=== PATIENT | female | born 1940 | race Caucasian/White ===

== ENCOUNTER 2020-09-22 15:10 | Inpatient (IN) | payer MEDICARE, OTHER ==
[~2020-09-22] VITALS: Ht 162.6 cm; Wt 63.7 kg
[~2020-09-22 15:10] MED LIST: ACETAMINOPHEN325 MG PO; MAG-OXIDE 400M400 MG PO; MUCINEX 600MG600 MG PO; NORCO 5-325 TA1 EACH PO
[2020-09-22 16:44] LABS: BASOPHIL 0.6 % (0-2); HCT 42.9 % (37.0-47.0); HGB 14.2 g/dl (12.5-16.0); LYMPHOCYTE 28.1 % (15-48); MCH 31.6 pg (25.0-31.0); MCHC 33.1 g/dL (32.0-36.0); MCV 95.5 fL (78.0-100.0); MPV 9.8 fL (6.0-9.5); NRBC 0; PLT 257 K/uL (150-400); RBC 4.49 M/uL (4.20-5.40); RDW 12.9 % (11.5-14.0); WBC 8.8 K/uL (4.0-10.5)
[2020-09-22 16:51] LABS: ALBUMIN 3.5 g/dL (3.4-5.0); BILIRUBIN - TOTAL 0.5 mg/dL (0.2-1.0); BUN/CREAT RATIO (CALC) 19.6 RATIO; CREATININE 0.97 mg/dL (0.51-0.95); TOTAL PROTEIN 6.5 g/dL (6.4-8.2)
[2020-09-23 05:48] LABS: BASOPHIL 0.2 % (0-2); EOSINOPHIL 0.2 % (0-7); HCT 38.3 % (37.0-47.0); HGB 12.6 g/dl (12.5-16.0); LYMPHOCYTE 8.4 % (15-48); MCHC 32.9 g/dL (32.0-36.0); MCV 94.3 fL (78.0-100.0); MONOCYTE 8.1 % (0-12); MPV 9.9 fL (6.0-9.5); NEUTROPHIL 82.7 % (41-80); NRBC 0; PLT 218 K/uL (150-400); RBC 4.06 M/uL (4.20-5.40); RDW 12.7 % (11.5-14.0); WBC 11.3 K/uL (4.0-10.5)
[2020-09-23 06:05] LABS: BILIRUBIN - TOTAL 0.9 mg/dL (0.2-1.0); CREATININE 0.75 mg/dL (0.51-0.95); POTASSIUM 3.4 mmol/L (3.5-5.1)
[2020-09-23 08:28] LABS: BUN/CREAT RATIO (CALC) 23.1 RATIO; CREATININE 0.78 mg/dL (0.51-0.95); GLOBULIN (CALCULATION) 2.9 g/dL; POTASSIUM 3.4 mmol/L (3.5-5.1); TOTAL PROTEIN 5.9 g/dL (6.4-8.2)
[2020-09-23] MEDS ORDERED: PLAVIX75 MG PO (09:09)
[2020-09-23] MEDS ORDERED: LIPITOR20 MG PO (09:11)
[2020-09-23] MEDS ORDERED: PROTONIX 40MG T40 MG PO (09:11)
[2020-09-23] MEDS ORDERED: TOPROL XL 25MG25 MG PO (09:12)
--- NOTE | 2020-09-23 13:06 | NUR ---
PT CLEARED BY CARDIOLOGY AND DR FUNES WILL NEXT BE CONSULTED FOR ACUTE CHOLECYSTITIS
[2020-09-23 14:18] LABS: AMYLASE 68 U/L (25-115); LIPASE 180 U/L (73-393)
[2020-09-24 05:49] LABS: BASOPHIL 0.6 % (0-2); EOSINOPHIL 4.1 % (0-7); HCT 38.9 % (37.0-47.0); HGB 12.8 g/dl (12.5-16.0); MCH 31.7 pg (25.0-31.0); MCHC 32.9 g/dL (32.0-36.0); MCV 96.3 fL (78.0-100.0); MPV 10.2 fL (6.0-9.5); NRBC 0; PLT 191 K/uL (150-400); RBC 4.04 M/uL (4.20-5.40); RDW 13.1 % (11.5-14.0); WBC 6.9 K/uL (4.0-10.5)
[2020-09-24 06:07] LABS: INR 1.17 (0.9-1.2); PROTHROMBIN TIME 14.1 SECONDS (11.4-13.6); PTT 28.6 SECONDS (22.2-34.7)
[2020-09-24 06:16] LABS: ALBUMIN 2.8 g/dL (3.4-5.0); BILIRUBIN - TOTAL 0.9 mg/dL (0.2-1.0); BUN/CREAT RATIO (CALC) 15.5 RATIO; CREATININE 0.84 mg/dL (0.51-0.95); MAGNESIUM 1.8 mg/dL (1.8-2.4); POTASSIUM 3.7 mmol/L (3.5-5.1); TOTAL PROTEIN 5.8 g/dL (6.4-8.2)
--- NOTE | 2020-09-24 13:48 | NUR ---
09/24/2020 Ms. Hayes lives alone. She was independent in the home and community prior to admission. Please advise of any discharge needs.
[2020-09-26 04:28] LABS: BASOPHIL 0.4 % (0-2); EOSINOPHIL 0.2 % (0-7); HGB 12.4 g/dl (12.5-16.0); LYMPHOCYTE 14.9 % (15-48); MCH 31.6 pg (25.0-31.0); MCHC 31.8 g/dL (32.0-36.0); MCV 99.2 fL (78.0-100.0); MPV 10.2 fL (6.0-9.5); NEUTROPHIL 74.1 % (41-80); NRBC 0; PLT 230 K/uL (150-400); RBC 3.93 M/uL (4.20-5.40); RDW 12.9 % (11.5-14.0); WBC 10.4 K/uL (4.0-10.5)
[2020-09-26 05:39] LABS: BILIRUBIN - TOTAL 0.6 mg/dL (0.2-1.0); BUN/CREAT RATIO (CALC) 15.8 RATIO; CREATININE 0.76 mg/dL (0.51-0.95); GLOBULIN (CALCULATION) 3.4 g/dL; MAGNESIUM 1.8 mg/dL (1.8-2.4); POTASSIUM 3.4 mmol/L (3.5-5.1); TOTAL PROTEIN 6.4 g/dL (6.4-8.2)
[2020-09-26] MEDS ORDERED: NORCO 5-325 TA1 EAC1 PO (09:53)
[2020-09-26] MEDS ORDERED: AUGMENTIN 875-1 EACH PO (10:15)
[2020-09-26] MEDS ORDERED: ONDANSETRON ODT4 MG PO (10:33)
--- NOTE | 2020-09-26 13:05 | NUR ---
1300 IV DC'D AT THIS TIME. DISCHARGE INSTRUCTIONS DISCUSSED WITH PT, PT VERBALIZED UNDERSTANDING. PT TRANSPORTED TO MAIN DOOR VIA WHEELCHAIR WHERE HER RIDE WAS WAITING, HER SISTER. PT TOLERATED WELL
[2020-09-26] MEDS ORDERED: LEVAQUIN750 MG PO (14:22)
[2021-03-04] MEDS ORDERED: VITAMIN D3 PO (16:34)
[2021-03-04] MEDS ORDERED: B COMPLEX1 EACH PO (16:34)
[2021-03-04] MEDS ORDERED: CO Q-10200 MG PO (16:35)
[2021-03-04] MEDS ORDERED: ASPIRIN EC81 MG PO (16:35)
[2021-03-04] MEDS ORDERED: PLAVIX75 MG PO (17:11)
== END 2020-09-26 12:56 | disposition home or self-care (01) | DRG 419 ==
LOC: FER 15:10 → FTCU 20:23
PROVIDERS: Emergency Medicine; Nurse Practitioner; Surgery; ADMIT Internal Medicine
PROC: B24BZZZ Ultrasonography of Heart with Aorta (ICD-10-PCS; 2020-09-23)
PROC: 0FT44ZZ Resection of Gallbladder, Percutaneous Endoscopic Approach (ICD-10-PCS; principal; 2020-09-25 10:00)
DX: K80.00 Calculus of gallbladder with acute cholecystitis without obstruction (principal); K21.9 Gastro-esophageal reflux disease without esophagitis; Z96.653 Presence of artificial knee joint, bilateral; I10 Essential (primary) hypertension; E78.5 Hyperlipidemia, unspecified; K66.0 Peritoneal adhesions (postprocedural) (postinfection); I25.10 Atherosclerotic heart disease of native coronary artery without angina pectoris; Z20.828 Contact with and (suspected) exposure to other viral communicable diseases; M19.90 Unspecified osteoarthritis, unspecified site; G89.18 Other acute postprocedural pain; F17.210 Nicotine dependence, cigarettes, uncomplicated; R94.5 Abnormal results of liver function studies; Z95.5 Presence of coronary angioplasty implant and graft; Z85.828 Personal history of other malignant neoplasm of skin; Z98.890 Other specified postprocedural states; Z79.02 Long term (current) use of antithrombotics/antiplatelets; Z79.899 Other long term (current) drug therapy; Z79.82 Long term (current) use of aspirin
CPT/HCPCS: 36415; 71045; 74183; 76705; 78452; 80053; 80061; 82150; 83605; 83690; 83735; 84484; 85025; 85610; 85730; 93005; 93017; 94667; A9500; A9579; G0378; J0153; J1170; J2250; J2405; J2543; J2704; J2710; J3010; J7120; U0002

== ENCOUNTER → 2021-03-11 | Day surgery (SDC) | payer MEDICARE, OTHER ==
[~2021-03-11] VITALS: Ht 162.6 cm; Wt 53.7 kg
[~2021-03-11] MED LIST changes: +ASPIRIN EC81 MG PO; +AUGMENTIN 875-1 EACH PO; +B COMPLEX1 EACH PO; +CO Q-10200 MG PO; +LEVAQUIN750 MG PO; +LIPITOR20 MG PO; +NORCO 5-325 TA1 EAC1 PO; +ONDANSETRON ODT4 MG PO; +PLAVIX75 MG PO; +PROTONIX 40MG T40 MG PO; +TOPROL XL 25MG25 MG PO; +VITAMIN D3 PO
[2021-03-11 07:43] LABS: HCT 40.5 % (37.0-47.0); HGB 14.3 g/dl (12.5-16.0); MCH 32.9 pg (25.0-31.0); MCHC 35.3 g/dL (32.0-36.0); MCV 93.1 fL (78.0-100.0); MPV 9.3 fL (6.0-9.5); RBC 4.35 M/uL (4.20-5.40); RDW 13.1 % (11.5-14.0); WBC 8.3 K/uL (4.0-10.5)
[2021-03-11 08:15] LABS: CREATININE 0.73 mg/dL (0.51-0.95); POTASSIUM 3.7 mmol/L (3.5-5.1)
[2021-03-11 08:16] LABS: ALBUMIN 3.6 g/dL (3.4-5.0); BILIRUBIN - TOTAL 0.6 mg/dL (0.2-1.0); GLOBULIN (CALCULATION) 3.3 g/dL; TOTAL PROTEIN 6.9 g/dL (6.4-8.2)
== END | disposition home or self-care (01) ==
LOC: FAS 06:55
PROVIDERS: Surgery
DX: Z12.11 Encounter for screening for malignant neoplasm of colon (principal); K20.90 Esophagitis, unspecified without bleeding; K29.70 Gastritis, unspecified, without bleeding; K44.9 Diaphragmatic hernia without obstruction or gangrene; K57.30 Diverticulosis of large intestine without perforation or abscess without bleeding; K58.9 Irritable bowel syndrome, unspecified; M19.90 Unspecified osteoarthritis, unspecified site; I25.10 Atherosclerotic heart disease of native coronary artery without angina pectoris; I10 Essential (primary) hypertension; E78.5 Hyperlipidemia, unspecified; M81.0 Age-related osteoporosis without current pathological fracture; Z86.010 Personal history of colon polyps; Z87.891 Personal history of nicotine dependence; Z80.0 Family history of malignant neoplasm of digestive organs; Z79.02 Long term (current) use of antithrombotics/antiplatelets; Z79.82 Long term (current) use of aspirin; Z79.899 Other long term (current) drug therapy; Z88.0 Allergy status to penicillin; Z91.013 Allergy to seafood; Z95.5 Presence of coronary angioplasty implant and graft
CPT/HCPCS: 43239; G0105; 36415; 80053; 88305; J1610; J2704; J7120

== ENCOUNTER 2021-05-10 14:36 | Inpatient (IN) | payer MEDICARE, OTHER ==
[~2021-05-10] VITALS: Ht 162.6 cm; Wt 55.5 kg
[2021-05-10 15:00] LABS: BILIRUBIN NEGATIVE (NEGATIVE); BLOOD NEGATIVE Ery/uL (NEGATIVE); CLARITY CLEAR (CLEAR); COLOR YELLOW (YELLOW); GLUCOSE (U) NORMAL (NORMAL); LEUKOCYTES 1+ Leu/uL (NEGATIVE); NITRITE NEGATIVE (NEGATIVE); PROTEIN NEGATIVE (NEGATIVE); SPECIFIC GRAVITY >=1.030 (1.001-1.030); UROBILINOGEN 0.2 mg/dL (0.2-1.0); pH 5.5 (5.0-9.0)
[2021-05-10 15:06] LABS: BACTERIA TRACE
[2021-05-10 15:44] LABS: BASOPHIL 0.3 % (0-2); EOSINOPHIL 0.1 % (0-7); HGB 13.4 g/dl (12.5-16.0); LYMPHOCYTE 10.6 % (15-48); MCH 31.9 pg (25.0-31.0); MCHC 33.5 g/dL (32.0-36.0); MCV 95.2 fL (78.0-100.0); MPV 9.6 fL (6.0-9.5); NEUTROPHIL 83.3 % (41-80); NRBC 0; PLT 365 K/uL (150-400); RDW 12.6 % (11.5-14.0); WBC 20.7 K/uL (4.0-10.5)
[2021-05-10 16:03] LABS: BILIRUBIN - TOTAL 0.4 mg/dL (0.2-1.0); CREATININE 0.88 mg/dL (0.51-0.95); GLOBULIN (CALCULATION) 2.9 g/dL; POTASSIUM 4.1 mmol/L (3.5-5.1); TOTAL PROTEIN 5.9 g/dL (6.4-8.2)
[2021-05-10 16:51] LABS: INR 1.17 (0.9-1.2); PROTHROMBIN TIME 14.3 SECONDS (11.8-13.4)
[2021-05-10 16:57] LABS: LACTIC ACID 1.8 mmol/L (0.4-1.9)
[2021-05-10 20:04] LABS: HCT 32.3 % (37.0-47.0); HGB 10.5 g/dL (12.5-16.0)
[2021-05-10] MEDS ORDERED: PROBIOTIC PO (20:18)
[2021-05-10 22:11] LABS: HCT 30.4 % (37.0-47.0); HGB 10.2 g/dL (12.5-16.0)
[2021-05-11 04:37] LABS: BASOPHIL 0.4 % (0-2); EOSINOPHIL 0.2 % (0-7); HCT 28.8 % (37.0-47.0); HGB 9.6 g/dl (12.5-16.0); LYMPHOCYTE 20.1 % (15-48); MCH 31.9 pg (25.0-31.0); MCHC 33.3 g/dL (32.0-36.0); MCV 95.7 fL (78.0-100.0); MONOCYTE 6.5 % (0-12); MPV 9.6 fL (6.0-9.5); NEUTROPHIL 72.3 % (41-80); NRBC 0; PLT 216 K/uL (150-400); RBC 3.01 M/uL (4.20-5.40); RDW 13.2 % (11.5-14.0); WBC 13.8 K/uL (4.0-10.5)
[2021-05-11 04:53] LABS: BUN/CREAT RATIO (CALC) 30.4 RATIO; CREATININE 0.69 mg/dL (0.51-0.95); POTASSIUM 4.4 mmol/L (3.5-5.1)
[2021-05-11 12:52] LABS: HCT 34.3 % (37.0-47.0); HGB 11.6 g/dL (12.5-16.0)
[2021-05-12 06:26] LABS: BASOPHIL 0.5 % (0-2); EOSINOPHIL 1.6 % (0-7); HCT 31.1 % (37.0-47.0); HGB 10.3 g/dl (12.5-16.0); LYMPHOCYTE 25.4 % (15-48); MCH 30.9 pg (25.0-31.0); MCHC 33.1 g/dL (32.0-36.0); MCV 93.4 fL (78.0-100.0); MONOCYTE 7.4 % (0-12); MPV 9.9 fL (6.0-9.5); NEUTROPHIL 64.5 % (41-80); NRBC 0; PLT 197 K/uL (150-400); RBC 3.33 M/uL (4.20-5.40); RDW 14.2 % (11.5-14.0); WBC 10.1 K/uL (4.0-10.5)
[2021-05-12 06:56] LABS: CREATININE 0.8 mg/dL (0.51-0.95); POTASSIUM 3.7 mmol/L (3.5-5.1)
--- NOTE | 2021-05-12 13:23 | NUR ---
PATIENT BACK FROM PACU IN STABLE CONDITION. V/S 119/59, 75 HR, 98%, 18, 96.4 ROOM AIR
--- NOTE | 2021-05-12 15:20 | NUR ---
ATTEMPTED TO CALL PCP ABOUT STOOL STUDIES REQUESTED BY DR FUNES AND UNABLE TO REACH OR GET ANSWER VIA PHONECALL
[2021-05-13 07:12] LABS: EOSINOPHIL 1.6 % (0-7); HCT 31.7 % (37.0-47.0); HGB 10.3 g/dl (12.5-16.0); LYMPHOCYTE 26.7 % (15-48); MCH 30.6 pg (25.0-31.0); MCHC 32.5 g/dL (32.0-36.0); MCV 94.1 fL (78.0-100.0); MONOCYTE 10.1 % (0-12); MPV 9.8 fL (6.0-9.5); NEUTROPHIL 60.3 % (41-80); NRBC 0; PLT 212 K/uL (150-400); RBC 3.37 M/uL (4.20-5.40); RDW 14.3 % (11.5-14.0); WBC 7.3 K/uL (4.0-10.5)
[2021-05-13 07:36] LABS: CREATININE 0.89 mg/dL (0.51-0.95); POTASSIUM 3.5 mmol/L (3.5-5.1)
[2021-05-13] MEDS ORDERED: CIPRO500 MG PO (14:03)
[2021-05-13] MEDS ORDERED: METRONIDAZOLE500 MG PO (14:03)
--- NOTE | 2021-05-13 14:20 | NUR ---
MET WITH PT. SHE STATED THAT SHE IS INDEPENDENT AT HOME. SHE DOES NOT WISH TO HAVE HH AT THIS TIME.
== END 2021-05-13 14:54 | disposition home or self-care (01) | DRG 378 ==
LOC: FER 14:36 → FMS 18:13
PROVIDERS: Emergency Medicine; Surgery; ADMIT Allergy & Immunology Allergy
PROC: 30233N1 Transfusion of Nonautologous Red Blood Cells into Peripheral Vein, Percutaneous Approach (ICD-10-PCS; 2021-05-11)
PROC: 0DJ08ZZ Inspection of Upper Intestinal Tract, Via Natural or Artificial Opening Endoscopic (ICD-10-PCS; 2021-05-12)
PROC: 0DBM8ZX Excision of Descending Colon, Via Natural or Artificial Opening Endoscopic, Diagnostic (ICD-10-PCS; principal; 2021-05-12 11:45)
PROC: 0DBN8ZX Excision of Sigmoid Colon, Via Natural or Artificial Opening Endoscopic, Diagnostic (ICD-10-PCS; 2021-05-12 11:45)
DX: K57.31 Diverticulosis of large intestine without perforation or abscess with bleeding (principal); R65.10 Systemic inflammatory response syndrome (SIRS) of non-infectious origin without acute organ dysfunction; D62 Acute posthemorrhagic anemia; T45.525A Adverse effect of antithrombotic drugs, initial encounter; I10 Essential (primary) hypertension; I25.10 Atherosclerotic heart disease of native coronary artery without angina pectoris; K52.9 Noninfective gastroenteritis and colitis, unspecified; K44.9 Diaphragmatic hernia without obstruction or gangrene; Z20.822 Contact with and (suspected) exposure to COVID-19; Z66 Do not resuscitate; I95.1 Orthostatic hypotension; K64.4 Residual hemorrhoidal skin tags; Z96.653 Presence of artificial knee joint, bilateral; M19.90 Unspecified osteoarthritis, unspecified site; Z95.5 Presence of coronary angioplasty implant and graft; Z79.82 Long term (current) use of aspirin; Z79.02 Long term (current) use of antithrombotics/antiplatelets; Z79.899 Other long term (current) drug therapy; Z88.8 Allergy status to other drugs, medicaments and biological substances
CPT/HCPCS: 36415; 36430; 80048; 80053; 81001; 82270; 83605; 84484; 85014; 85018; 85025; 85610; 85730; 86850; 86900; 86901; 86922; 87040; 88305; 93005; C9113; J0610; J2354; J2405; J2543; J2704; J7030; J7120; P9016; Q9967; U0002

== ENCOUNTER 2021-05-17 10:34 | Emergency (ER) | payer MEDICARE, OTHER ==
[~2021-05-17 10:34] MED LIST changes: +CIPRO500 MG PO; +METRONIDAZOLE500 MG PO; +PROBIOTIC PO
[2021-05-17 11:38] LABS: BASOPHIL 0.9 % (0-2); EOSINOPHIL 1.4 % (0-7); HCT 34.2 % (37.0-47.0); HGB 11.1 g/dl (12.5-16.0); LYMPHOCYTE 16.6 % (15-48); MCH 31.5 pg (25.0-31.0); MCHC 32.5 g/dL (32.0-36.0); MCV 97.2 fL (78.0-100.0); MONOCYTE 7.3 % (0-12); MPV 10.1 fL (6.0-9.5); NEUTROPHIL 73.3 % (41-80); NRBC 0; PLT 286 K/uL (150-400); RBC 3.52 M/uL (4.20-5.40); RDW 15.2 % (11.5-14.0); WBC 6.6 K/uL (4.0-10.5)
[2021-05-17 11:54] LABS: ALBUMIN 3.4 g/dL (3.4-5.0); BILIRUBIN - TOTAL 0.3 mg/dL (0.2-1.0); BUN/CREAT RATIO (CALC) 20.8 RATIO; CREATININE 0.77 mg/dL (0.51-0.95); GLOBULIN (CALCULATION) 3.2 g/dL; POTASSIUM 3.8 mmol/L (3.5-5.1); TOTAL PROTEIN 6.6 g/dL (6.4-8.2)
== END 2021-05-17 14:10 | disposition home or self-care (01) ==
LOC: FER 10:34
PROVIDERS: Internal Medicine
DX: K57.21 Diverticulitis of large intestine with perforation and abscess with bleeding (principal); I25.10 Atherosclerotic heart disease of native coronary artery without angina pectoris; Z90.49 Acquired absence of other specified parts of digestive tract; Z88.0 Allergy status to penicillin; Z79.02 Long term (current) use of antithrombotics/antiplatelets; Z79.82 Long term (current) use of aspirin; Z95.5 Presence of coronary angioplasty implant and graft
CPT/HCPCS: 36415; 80053; 85025; 86850; 86900; 86901; Q9967

== ENCOUNTER 2021-05-29 09:12 | Emergency (ER) | payer MEDICARE, OTHER ==
[2021-05-29 09:41] LABS: BASOPHIL 0.8 % (0-2); EOSINOPHIL 1.1 % (0-7); HCT 37.6 % (37.0-47.0); HGB 12.1 g/dl (12.5-16.0); LYMPHOCYTE 25.9 % (15-48); MCH 31.4 pg (25.0-31.0); MCHC 32.2 g/dL (32.0-36.0); MCV 97.7 fL (78.0-100.0); MONOCYTE 9.3 % (0-12); MPV 9.2 fL (6.0-9.5); NEUTROPHIL 62.7 % (41-80); NRBC 0; PLT 291 K/uL (150-400); RBC 3.85 M/uL (4.20-5.40); RDW 14.8 % (11.5-14.0); WBC 6.1 K/uL (4.0-10.5)
[2021-05-29 09:51] LABS: INR 1.02 (0.9-1.2); PROTHROMBIN TIME 12.8 SECONDS (11.8-13.4); PTT 26.7 SECONDS (24.4-34.7)
[2021-05-29 10:11] LABS: PRO-BNP 290 pg/mL (<450)
[2021-05-29 10:14] LABS: ALBUMIN 3.5 g/dL (3.4-5.0); BILIRUBIN - TOTAL 0.3 mg/dL (0.2-1.0); CREATININE 0.77 mg/dL (0.51-0.95); POTASSIUM 3.6 mmol/L (3.5-5.1); TOTAL PROTEIN 6.5 g/dL (6.4-8.2)
[2021-05-29 10:19] LABS: BILIRUBIN NEGATIVE (NEGATIVE); BLOOD TRACE-LYSED Ery/uL (NEGATIVE); CLARITY CLEAR (CLEAR); COLOR YELLOW (YELLOW); GLUCOSE (U) NORMAL (NORMAL); LEUKOCYTES 2+ Leu/uL (NEGATIVE); NITRITE NEGATIVE (NEGATIVE); PROTEIN NEGATIVE (NEGATIVE); UROBILINOGEN 0.2 mg/dL (0.2-1.0)
[2021-05-29 10:28] LABS: BACTERIA TRACE; URINARY RBC RARE
== END 2021-05-29 10:55 | disposition home or self-care (01) ==
LOC: FER 09:12
PROVIDERS: Emergency Medicine
DX: Z71.1 Person with feared health complaint in whom no diagnosis is made (principal); I25.10 Atherosclerotic heart disease of native coronary artery without angina pectoris
CPT/HCPCS: 36415; 71046; 80053; 81001; 82553; 83880; 84484; 85025; 85610; 85730; 93005